=== PATIENT | female | born 1930 | race Caucasian/White ===

== ENCOUNTER 2016-10-01 07:01 | Day surgery (SDC) | payer MEDICARE, OTHER ==
[~2016-10-01 07:01] MED LIST: Gatifloxacin 0.5% Ophth Soln 2.5 ML Bot EYELF SCH; Lactated Ringers 1,000 ML IV SCH; Sodium Chloride 0.9% 5 ML Syringe FLUSH PRN
[2016-10-01] MEDS: Cyclopentolate 1% Opth Soln 2 ML Bottle EYELF SCH ×3 (07:35→08:10)
[2016-10-01] MEDS: Phenylephrine 10% Ophth Soln 5 ML Bot EYELF SCH ×3 (07:48→08:25)
[2016-10-01] MEDS ORDERED: Tetracaine 0.5% 2 ML Bottle EYEBOTH ONE (09:30)
[2016-10-01] MEDS ORDERED: Balanced Salt Solution Plus Ophth Irrig 500 ML Bottle IOCULAR ONE (09:30)
[2016-10-01] MEDS ORDERED: Water For Irrigation,Sterile 1,500 ML Container ONE (09:30)
[2016-10-01] MEDS ORDERED: Balanced Salt Solution Ophth Irrig 15 ML Bottle EYELF ONE (09:30)
[2016-10-01] MEDS ORDERED: EPINEPHrine 1:1000 1 MG/ML SDV ONE (09:31)
[2016-10-01] MEDS ORDERED: Dexamethasone/Neomycin/Polymyxin B Ophth Oint 3.5 GM Tube EYELF ONE (09:31)
[2016-10-01] MEDS ORDERED: Lidocaine 2% with EPINEPHrine 1:100,000 20 ML MDV INJECT ONE (09:31)
[2016-10-01] MEDS ORDERED: Carbachol 0.01% Intraocular 1.5 ML Vial EYELF ONE (09:31)
[2016-10-01] MEDS ORDERED: Lidocaine 1% 10 ML MDV INJECT ONE (09:32)
[2016-10-01] MEDS ORDERED: Hyaluronate Sodium 1% 0.85 ML Syringe IOCULAR ONE (09:32)
[2016-10-01 09:43] VITALS: BP 141/62
--- NOTE | 2016-10-01 12:46 | PROC ---
DATE OF PROCEDURE: PHYSICIAN: Hola Richter MD PRE-PROCEDURE DIAGNOSIS: Cataract, left eye. POST-PROCEDURE DIAGNOSIS: Cataract, left eye. PROCEDURE PERFORMED: Phacoemulsification with posterior chamber lens insertion, left eye. FINDINGS: The patient was taken to the operating room where appropriate anesthesia, sedation and monitoring were provided. A retrobulbar block was given on the left side. The eye was massaged and was found to be appropriately soft. The eye and eyelids were then prepped and draped in the usual sterile manner. A lid speculum was placed. A micro sharp blade was used to enter the anterior chamber inside the limbus inferior-temporally. Xylocaine was irrigated into the eye at this site. Healon was irrigated into the eye through this site. Then using a 2.85 mm corneal blade an entry was made into the anterior chamber just inside the limbus temporally. Healon was again irrigated into the eye. Then using a cystitome, the anterior capsulorrhexis was created. The lens nucleus was hydrodissected using a 27 gauge cannula and balanced salt solution. The phacoemulsification unit was introduced through the temporal site and the Ricardo spatula through the inferior temporal site. In so doing, the lens nucleus was phacoemulsified. The cortical fragments of the lens were removed using the irrigation aspiration unit. The posterior capsule was polished. Healon was irrigated into the eye. The posterior chamber lens was inserted and rotated into position inside the capsular bag. The Healon was irrigated out of the eye. Miostat was irrigated into the eye and the pupil rounded nicely. A single interrupted 10-0 Nylon suture was placed through the temporal corneal incision site. Balanced salt solution was irrigated into the eye. The wound was tested and found to be tight. Maxitrol ointment was placed into the patient's left eye. The eyelids were closed and an eye patch and rhoades shield were placed. The patient left the operating room in good condition. /[id number]/MODL
== END 2016-10-01 10:07 | disposition home or self-care (01) ==
LOC: KA.SDS 07:01
PROVIDERS: ATTEND Ophthalmology
DX: H26.9 Unspecified cataract (principal); E78.5 Hyperlipidemia, unspecified; Z88.2 Allergy status to sulfonamides; Z90.710 Acquired absence of both cervix and uterus; Z90.49 Acquired absence of other specified parts of digestive tract
CPT/HCPCS: 00142; 66984; A9270; C1780; J0171; J7120

== ENCOUNTER 2016-11-26 10:13 | Day surgery (SDC) | payer MEDICARE, OTHER ==
[2016-11-26] MEDS ORDERED: Sodium Chloride 0.9% 5 ML Syringe FLUSH PRN (10:15)
[2016-11-26] MEDS ORDERED: Lactated Ringers 1,000 ML IV SCH (10:15)
[2016-11-26] MEDS ORDERED: Gatifloxacin 0.5% Ophth Soln 2.5 ML Bot EYERT SCH (10:15)
[2016-11-26] MEDS: Cyclopentolate 1% Opth Soln 2 ML Bottle EYERT SCH ×3 (10:58→11:41)
[2016-11-26] MEDS: Phenylephrine 10% Ophth Soln 5 ML Bot EYERT SCH ×3 (11:07→11:50)
[2016-11-26] MEDS ORDERED: Midazolam 1 MG/ML 2 ML SDV ONE (11:20)
[2016-11-26] MEDS ORDERED: Balanced Salt Solution Plus Ophth Irrig 500 ML Bottle IOCULAR ONE (12:33)
[2016-11-26] MEDS ORDERED: Water For Irrigation,Sterile 1,500 ML Container ONE (12:33)
[2016-11-26] MEDS ORDERED: Balanced Salt Solution Ophth Irrig 15 ML Bottle EYERT ONE (12:33)
[2016-11-26] MEDS ORDERED: Carbachol 0.01% Intraocular 1.5 ML Vial EYERT ONE (12:33)
[2016-11-26] MEDS ORDERED: Tetracaine 0.5% 2 ML Bottle EYEBOTH ONE (12:33)
[2016-11-26] MEDS ORDERED: EPINEPHrine 1:1000 1 MG/ML SDV ONE (12:34)
[2016-11-26] MEDS ORDERED: Hyaluronate Sodium 1% 0.85 ML Syringe IOCULAR ONE (12:34)
[2016-11-26] MEDS ORDERED: Dexamethasone/Neomycin/Polymyxin B Ophth Oint 3.5 GM Tube EYERT ONE (12:34)
[2016-11-26] MEDS ORDERED: Lidocaine 2% with EPINEPHrine 1:100,000 20 ML MDV INJECT ONE (12:34)
[2016-11-26] MEDS ORDERED: Lidocaine 1% 10 ML MDV INJECT ONE (12:34)
[2016-11-26 13:40] VITALS: BP 127/54
--- NOTE | 2016-11-27 08:18 | OR ---
DATE OF SURGERY: 11/26/2016 SURGEON: Hola Richter MD PREOPERATIVE DIAGNOSIS: Cataract, right eye. POSTOPERATIVE DIAGNOSIS: Cataract, right eye. OPERATION PERFORMED: Phacoemulsification with posterior chamber lens insertion, right eye. FINDINGS: The patient was taken to the operating room where appropriate anesthesia, sedation and monitoring were provided. A retrobulbar block was given on the right side. The eye was massaged and was found to be appropriately soft. The eye and eyelids were then prepped and draped in the usual sterile manner. A lid speculum was placed. A micro sharp blade was used to enter the anterior chamber inside the limbus superior-temporally. Xylocaine was irrigated into the eye at this site. Healon was irrigated into the eye through this site. Then using a 2.85 mm corneal blade an entry was made into the anterior chamber just inside the limbus temporally. Healon was again irrigated into the eye. Then using a cystitome, the anterior capsulorrhexis was created. The lens nucleus was hydrodissected using a 27 gauge cannula and balanced salt solution. The phacoemulsification unit was introduced through the temporal site and the Ricardo spatula through the superior temporal site. In so doing, the lens nucleus was phacoemulsified. The cortical fragments of the lens were removed using the irrigation aspiration unit. The posterior capsule was polished. Healon was irrigated into the eye. The posterior chamber lens was inserted and rotated into position inside the capsular bag. The Healon was irrigated out of the eye. Miostat was irrigated into the eye and the pupil rounded nicely. A single interrupted 10-0 Nylon suture was placed through the temporal corneal incision site. Balanced salt solution was irrigated into the eye. The wound was tested and found to be tight. Maxitrol ointment was placed into the patient's right eye. The eyelids were closed and an eye patch and rhoades shield were placed. The patient left the operating room in good condition. /[id number]/MODL
== END 2016-11-26 13:23 | disposition home or self-care (01) ==
LOC: KA.SDS 10:13
PROVIDERS: ATTEND Ophthalmology
DX: H26.9 Unspecified cataract (principal); E78.5 Hyperlipidemia, unspecified; K43.2 Incisional hernia without obstruction or gangrene; Z98.42 Cataract extraction status, left eye; Z90.710 Acquired absence of both cervix and uterus; Z90.49 Acquired absence of other specified parts of digestive tract; Z88.2 Allergy status to sulfonamides; Z79.899 Other long term (current) drug therapy
CPT/HCPCS: 00142; 66984; A9270; C1780; J0171; J7120